=== PATIENT | male | born 1970 | race Caucasian/White ===

== ENCOUNTER 2021-03-03 20:27 | Emergency (ER) | payer OTHER ==
[~2021-03-03] VITALS: Ht 172.7 cm; Wt 102.1 kg
[2021-03-03 21:45] VITALS: BP_SYST 158
--- NOTE | 2021-03-03 21:50 | NUR ---
Patient triaged and placed in waiting room. VS checked and patient appears in no acute distress at this time. Accompanied by self, awaiting available bed, and MD notified of need for MSE.
[2021-03-03] MEDS ORDERED: PRED20TA PO (22:00)
[2021-03-03] MEDS ORDERED: METH20TA PO (22:00)
--- NOTE | 2021-03-04 01:30 | NUR ---
Patient resting quietly in the waiting room. No acute distress noted. Awaiting evaluation
--- NOTE | 2021-03-04 02:06 | NUR ---
ER in triage examining patient.
--- NOTE | 2021-03-04 02:25 | NUR ---
Patient given written and verbal discharge instructions and verbalizes understanding. ER MD discussed with patient the care provided. Patient in stable condition. ID arm band removed. No Rx given. Patient educated on pain management and to follow up with PMD. Pain Scale 6/10. Opportunity for questions provided and answered.
== END 2021-03-04 02:25 | disposition home or self-care (01) ==
LOC: SED 20:27
DX: K42.9 Umbilical hernia without obstruction or gangrene (principal); R10.9 Unspecified abdominal pain; I10 Essential (primary) hypertension
CPT/HCPCS: 99281